=== PATIENT | female | born 1990 | race Caucasian/White ===

== ENCOUNTER 2020-11-06 16:30 | Emergency (ER) | payer MEDICAID, OTHER ==
[~2020-11-06] VITALS: Ht 170.2 cm; Wt 54.4 kg
[2020-11-06] MEDS ORDERED: IV NORMAL SALINE 1000 ML BAG IV ONE (16:45)
--- NOTE | 2020-11-06 16:50 | NUR ---
Pt to CT
[2020-11-06] MEDS ORDERED: IOHEXOL 350 100 ML INFUS..BTL ONE (16:53)
[2020-11-06] MEDS ORDERED: SWABABLE VALVE TRANSFER SET EA MC ONE (16:53)
[2020-11-06] MEDS ORDERED: IV NORMAL SALINE 250 ML IV ONE (16:53)
[2020-11-06 16:54] LABS: BASOPHILS % (AUTO) 0.5 % (0.0-2.0); EOSINOPHILS % (AUTO) 0.7 % (0.0-7.0); HEMATOCRIT 40.6 % (31.2-41.9); HEMOGLOBIN 13.9 g/dL (10.9-14.3); LYMPHOCYTES # (AUTO) 3.4 K/uL (20.0-40.0); LYMPHOCYTES % (AUTO) 47.1 % (20.5-51.5); MEAN CORPUSCULAR HEMOGLOBIN 32.8 uug (24.7-32.8); MEAN CORPUSCULAR HGB CONC 34 g/dL (32.3-35.6); MEAN CORPUSCULAR VOLUME 95.4 fL (75.5-95.3); MONOCYTES # (AUTO) 0.4 K/uL (2.0-10.0); MONOCYTES % (AUTO) 5.9 % (0.0-11.0); NEUTROPHILS # (AUTO) 3.3 K/uL (1.8-8.9); NEUTROPHILS % (AUTO) 45.8 % (38.5-71.5); PLATELET COUNT (AUTO) 216 K/uL (179-408); RED BLOOD CELL COUNT(AUTO) 4.25 MIL/uL (3.63-4.92); WHITE BLOOD COUNT (AUTO) 7.1 K/uL (3.8-11.8)
[2020-11-06 17:03] LABS: CREATININE 1.1 mg/dL (0.6-1.3); POTASSIUM 3.5 mmol/L (3.5-5.1)
[2020-11-06 17:09] LABS: BILIRUBIN,DIRECT 0.1 mg/dL (0.0-0.2); BILIRUBIN,TOTAL 0.2 mg/dL (0.2-1.0); TOTAL PROTEIN, SERUM 6.9 g/dL (6.4-8.2)
[2020-11-06 17:30] LABS: THYROID STIMULATING HORMONE 1.575 mIU/mL (0.358-3.740)
[2020-11-06] MEDS ORDERED: ACETAMINOPHEN ES 500 MG TABLET PO ONE (18:00)
[2020-11-06] MEDS ORDERED: KETOROLAC TROMETHAMINE 30 MG INJ IVP ONE (18:30)
[2020-11-06] MEDS ORDERED: PROCHLORPERAZINE EDISYLATE 10 MG/2 ML VIAL IV ONE (18:30)
[2020-11-06] MEDS ORDERED: methylPREDNISolone SOD SUCC 125 MG/2 ML VIAL IV ONE (18:30)
[2020-11-06] MEDS ORDERED: ACETAMINOPHEN ES 500 MG TABLET ONE (18:48)
[2020-11-06] MEDS ORDERED: PROCHLORPERAZINE EDISYLATE 10 MG/2 ML VIAL ONE (18:49)
[2020-11-06] MEDS ORDERED: methylPREDNISolone SOD SUCC 125 MG/2 ML VIAL ONE (18:50)
[2020-11-06] MEDS ORDERED: KETOROLAC TROMETHAMINE 30 MG INJ ONE (18:51)
--- NOTE | 2020-11-06 19:25 | NUR ---
Gave report to DORIS Burroughs.
--- NOTE | 2020-11-06 19:27 | NUR ---
Handoff report received from DORIS Thao for continuity of care. Patient is pending inpatient admission under care of Dr. Alcantara. Patient will be admitted for complicated migraines. Patient vital signs stable, no acute distress noted. Will continue to observe and monitor until transported.
[2020-11-06 19:28] LABS: *URINE HCG, QUAL NEGATIVE (NEGATIVE)
--- NOTE | 2020-11-06 19:33 | NUR ---
Patient has a room upstairs, [facility].
--- NOTE | 2020-11-06 19:34 | NUR ---
Patient stated that she is considering not being admitted to the hospital, will give patient time to decide prior to making decision.
--- NOTE | 2020-11-06 19:46 | NUR ---
Patient states she will be going home. Patient discharged to home in stable condition. Written and verbal after care instructions given. Patient verbalizes understanding of instructions. Stressed follow up or return to ER for worsening s/s. Patient ambulated with steady gait.
[2020-11-06 19:48] VITALS: BP 117/67
== END 2020-11-06 19:57 | disposition home or self-care (01) ==
LOC: ER 16:32
DX: G43.109 Migraine with aura, not intractable, without status migrainosus (principal); R53.1 Weakness; R00.1 Bradycardia, unspecified; F07.81 Postconcussional syndrome; Z20.822 Contact with and (suspected) exposure to COVID-19
CPT/HCPCS: 36415; 70496; 70498; 71045; 80048; 80076; 82962; 84443; 84484; 84702; 84703; 85025; 85730; 87426; 93005; 96361; 96374; 96375; 99285; J0780; J1885; J2930; Q9967; 70030-TC; A4663; A9150; J7030; J7050